=== PATIENT | male | born 1945 | race Caucasian/White ===

== ENCOUNTER → 2021-03-14 | Outpatient (CLI) | payer MEDICARE, BC ==
[2021-03-16 15:34] LABS: CORONAVIRUS (COVID19) CSH-NRL Negative (Negative)
== END | disposition home or self-care (01) ==
LOC: LAB 17:20 → LAB SHORT 17:20
PROVIDERS: Physician Assistant
DX: Z20.822 Contact with and (suspected) exposure to COVID-19 (principal)
CPT/HCPCS: U0003

== ENCOUNTER → 2021-04-07 | Outpatient (CLI) | payer MEDICARE, BC | END | disposition home or self-care (01) | LOC: LAB 11:13 → LAB SHORT 11:13 | DX: D04.5 Carcinoma in situ of skin of trunk (principal) | CPT/HCPCS: 88305 ==

== ENCOUNTER → 2022-05-04 | Outpatient (CLI) | payer MEDICARE, BC | END | disposition home or self-care (01) | LOC: LAB 10:55 → LAB SHORT 10:55 | DX: D48.5 Neoplasm of uncertain behavior of skin (principal) | CPT/HCPCS: 88305 ==

== ENCOUNTER 2022-07-12 07:18 | Day surgery (SDC) | payer MEDICARE, BC ==
[~2022-07-12] VITALS: Ht 185.4 cm; Wt 94.9 kg
[2022-07-12] MEDS ORDERED: ZYRTEC10 M1 (07:35)
[2022-07-12] MEDS ORDERED: ALBU3IS (07:35)
[2022-07-12] MEDS ORDERED: ATOR20 (07:35)
[2022-07-12] MEDS ORDERED: PRED1 (07:36)
== END 2022-07-12 09:22 | disposition home or self-care (01) ==
LOC: ORSCSDS 07:18
PROVIDERS: Surgery
PROC: 0DBP8ZX Excision of Rectum, Via Natural or Artificial Opening Endoscopic, Diagnostic (ICD-10-PCS; principal; 2022-07-12 08:30)
DX: Z85.048 Personal history of other malignant neoplasm of rectum, rectosigmoid junction, and anus (principal); D12.8 Benign neoplasm of rectum; I10 Essential (primary) hypertension; Z79.899 Other long term (current) drug therapy
CPT/HCPCS: 88305; J2704; J7120

== ENCOUNTER 2024-03-05 08:40 | Day surgery (SDC) | payer OTHER ==
[~2024-03-05] VITALS: Ht 182 cm; Wt 89.4 kg
[2024-03-05] VITALS (14 sets, daily range): BP systolic 69–145; BP diastolic 47–78
[~2024-03-05 08:40] MED LIST: ALBU3IS; ATOR20 PO; Acetaminophen 500 MG Tab PO SCH; CeFAZolin Sodium 2,000 MG in NS 100 ML IV SCH; Chlorhexidine Mouth Care 15 ML UDC MT SCH; Deltasone 10 mg10 MG PO; Lactated Ringer's 1,000 ML IV SCH; OxyCODONE HCL 10 MG TABCR PO SCH; Ropivacaine 0.5% HCl/Pf 123.125 MG,EPINEPHrine HCL 0.25 MG,Ketorolac Tromethamine 15 MG... INFIL SCH; Tranexamic Acid 100 ML IV SCH; ZYRTEC10 M1 PO
--- NOTE | 2024-03-05 10:31 | NUR ---
History, Chart, Medications and Allergies reviewed before start of procedure. Patient up to Ambulate independently. Gait steady. Pre-Op teaching done. Pt verbalizes understanding. Patient confirms NPO status and agrees with scheduled surgery. Patient reports completing Chlorhexadine shower X5 prior to admission to hospital. Surgical site prepped with 2% Chlorhexidine cloth wipe. Lungs clear T/O to Auscultation. Patient States Post-Procedure ride home has been arranged.
[2024-03-05] MEDS ORDERED: MUPIROCIN2210 (11:22)
[2024-03-05] MEDS ORDERED: PRED5 PO (11:22)
[2024-03-05] MEDS ORDERED: CENTRUM SILVER1 EAC2 PO (11:25)
[2024-03-05] MEDS ORDERED: FLUT1DIS8 INH (11:26)
[2024-03-05] MEDS ORDERED: PSYLLIUM FIBER0.4 GM PO (11:26)
[2024-03-05] MEDS ORDERED: AIRBORNE IMMUN1 EACH PO (11:27)
[2024-03-05] MEDS ORDERED: FLONASE ALLERG9.9 M2 (11:29)
[2024-03-05] MEDS ORDERED: FentaNYL Citrate 50 MCG/ML 2 ML Injection ONE (11:32)
[2024-03-05] MEDS ORDERED: propofoL 40 ML IV ONE (13:00)
[2024-03-05] MEDS ORDERED: propofoL 20 ML IV ONE (13:50)
[2024-03-05] MEDS ORDERED: Promethazine HCl 25 MG Tab PO PRN (14:05)
[2024-03-05] MEDS ORDERED: OxyCODONE HCL 5 MG TAB PO PRN ×2 (14:10)
[2024-03-05] MEDS ORDERED: Ondansetron HCl 2 MG / ML 2ML Vial IV PRN (14:10)
[2024-03-05] MEDS ORDERED: Magnesium Hydroxide Conc 10 ML UDC PO PRN (14:10)
[2024-03-05] MEDS ORDERED: Metoclopramide HCl 5MG / ML 2ML Vial IV PRN (14:10)
[2024-03-05] MEDS ORDERED: HYDROmorphone HCl/Pf 1MG SYR IV PRN (14:10)
[2024-03-05] MEDS ORDERED: Lactated Ringer's 1,000 ML IV SCH (14:15)
[2024-03-05] MEDS ORDERED: DiphenhydrAMINE HCL 25 MG Cap PO PRN (14:15)
[2024-03-05] MEDS ORDERED: Bisacodyl 10 MG Supp PR PRN (14:15)
--- NOTE | 2024-03-05 15:00 | NUR ---
ARRIVAL TO UNIT PT ARRIVED TO UNIT VIA BED. A&O x4. VSS. TOLERATING ORALS; DENIES N/V. IV FLUIDS INFUSING PER EMAR. PT REPORTS NO PAIN AT THIS TIME, POLAR PACK IN USE, S/P SPINAL - SENSATION AT APPROX L3. AQUACEL & BRONSON WRAP C/D/I. AT BEDSIDE. ORIENTED TO ROOM, CALL LIGHT IN REACH, NO STATED NEEDS AT THIS TIME.
[2024-03-05] MEDS ORDERED: Acetaminophen 500 MG Tab PO SCH (16:00)
[2024-03-05] MEDS ORDERED: Ketorolac Tromethamine 15mg Vial IV SCH (18:00)
--- NOTE | 2024-03-05 18:28 | NUR ---
SHIFT SUMMARY POD 0 R TKA. NO ACUTE CHANGES THIS SHIFT. VSS. TOLERATING ORALS, DENIES N/V. PT REPORTS PAIN TOLERABLE, MEDICATED PER EMAR; POLAR PACK IN USE. AQUACEL/BRONSON WRAP C/D/I. VOIDING IND. AMBULATES USING FWW c SBA. PHYSCIAL THERAPY CLEARED PT TO D/C AFTER EVAL TODAY. AT BEDSIDE. PT ANTICIPATED TO DISCHAGE HOME LATER TODAY. CALL LIGHT IN REACH, BED IN LOWEST POSITION, WILL REPORT TO TOMY RN.
[2024-03-05] MEDS ORDERED: ASPI81CH PO (19:51)
[2024-03-05] MEDS ORDERED: CeFAZolin Sodium 2,000 MG in NS 100 ML IV SCH (20:00)
--- NOTE | 2024-03-05 20:15 | NUR ---
DISCHARGE PT EDUCATED WITH DISCHARGE INSTRUCTIONS. IV REMOVED, PT ASSESSED. MEDICATED FOR PAIN PER EMAR. PT AND SPOUSE VERBALIZED THAT THEY HAVE NO FURTER QUESTIONS OR CONCERNS AT THIS TIME. PT WHEELED OUT BY MARCELINO.
[2024-03-05] MEDS ORDERED: Docusate Sodium 100 MG Cap PO SCH (21:00)
[2024-03-06] MEDS ORDERED: Aspirin 81 MG Chew PO SCH (09:00)
== END 2024-03-05 20:20 | disposition home or self-care (01) ==
LOC: ORSCMMR 08:40 → ORD 10:00 → SURS 14:40 → ORSCMMR 20:20
PROVIDERS: Orthopaedic Surgery
PROC: 0SRC0JA Replacement of Right Knee Joint with Synthetic Substitute, Uncemented, Open Approach (ICD-10-PCS; principal; 2024-03-05 10:00)
PROC: 8E0Y0CZ Robotic Assisted Procedure of Lower Extremity, Open Approach (ICD-10-PCS; principal; 2024-03-05 10:00)
DX: M17.11 Unilateral primary osteoarthritis, right knee (principal); E78.5 Hyperlipidemia, unspecified; Z79.899 Other long term (current) drug therapy
CPT/HCPCS: 73560-RT; 97110; 97116; 97162; A9270; C1713; C1776; J0171; J0690; J0735; J1885; J2704; J2795; J3010; J7120

== ENCOUNTER 2024-08-20 06:12 | Day surgery (SDC) | payer OTHER ==
[~2024-08-20] VITALS: Ht 185.4 cm; Wt 80.0 kg
[~2024-08-20 06:12] MED LIST changes: +AIRBORNE IMMUN1 EACH PO; +ASPI81CH PO; -Acetaminophen 500 MG Tab PO SCH; +CENTRUM SILVER1 EAC2 PO; -CeFAZolin Sodium 2,000 MG in NS 100 ML IV SCH; -Chlorhexidine Mouth Care 15 ML UDC MT SCH; +FLONASE ALLERG9.9 M2; +FLUT1DIS8 INH; -Lactated Ringer's 1,000 ML IV SCH; +MUPIROCIN2210; -OxyCODONE HCL 10 MG TABCR PO SCH; +PRED5 PO; +PSYLLIUM FIBER0.4 GM PO; -Ropivacaine 0.5% HCl/Pf 123.125 MG,EPINEPHrine HCL 0.25 MG,Ketorolac Tromethamine 15 MG... INFIL SCH; -Tranexamic Acid 100 ML IV SCH
[2024-08-20] MEDS ORDERED: FARXIGA10 MG PO (06:28)
[2024-08-20] MEDS ORDERED: ALBU90OI INH (06:28)
[2024-08-20] MEDS ORDERED: XARELTO20 MG PO (06:33)
[2024-08-20] MEDS ORDERED: METO25ER PO (06:33)
[2024-08-20] MEDS ORDERED: ENTRESTO 24 MG1 EAC2 PO (06:35)
[2024-08-20] MEDS ORDERED: NASACORT10.8 ML NS (06:36)
[2024-08-20] MEDS ORDERED: NS 1,000 ML IV ONE (06:53)
[2024-08-20 07:01] VITALS: BP 118/61
--- NOTE | 2024-08-20 07:25 | NUR ---
ASSUMED CARE FROM ANESTHESIA AT 0725. PT AWAKE AND VERBALIZING WELL. SR 55-60BPM POST CARDIOVERSION.
[2024-08-20 07:26] VITALS: BP 118/61
[2024-08-20 07:32] VITALS: BP 109/63
[2024-08-20 07:38] VITALS: BP 114/64
[2024-08-20 07:44] VITALS: BP 119/63
--- NOTE | 2024-08-20 07:46 | NUR ---
PT AND VERBALIZED UNDERSTANDING OF WRITTEN AND VERBAL D/C INST. IV REMOVED. SR 55-60BPM. EKD DONE. PT WILL BE TAKEN OUT VIA W/C.
[2024-08-20 07:48] VITALS: BP 118/66
--- NOTE | 2024-08-20 11:00 | NUR ---
PT REFUSES SNAKES OR MEAL. PT FAMILY AT BEDSIDE. R WRIST IS SOFT. NO BLEEDING.
--- NOTE | 2024-08-20 11:14 | NUR ---
BEGAN DEFLATING TR BAND.
[2024-08-20] MEDS ORDERED: Propofol 10mg/ml 20 ml Vial (Procedural) IV ONE (13:34)
== END 2024-08-20 23:00 | disposition home or self-care (01) ==
LOC: MHTC 06:12 → ORSCMMR 06:12 → MHTC 06:26 → ORSCSDS 07:00 → ORSCMMR 07:00 → ORD 07:00 → ORSCMMR 23:00 → MHTC 23:00
DX: I48.19 Other persistent atrial fibrillation (principal); J45.40 Moderate persistent asthma, uncomplicated; E78.5 Hyperlipidemia, unspecified; E11.9 Type 2 diabetes mellitus without complications; I11.0 Hypertensive heart disease with heart failure; I50.20 Unspecified systolic (congestive) heart failure; Z79.899 Other long term (current) drug therapy; Z88.8 Allergy status to other drugs, medicaments and biological substances
CPT/HCPCS: 92960; 93005; 93010; J2704; J7030

== ENCOUNTER 2024-08-26 07:16 | Day surgery (SDC) | payer OTHER ==
[2024-08-26] VITALS (9 sets, daily range): BP systolic 93–143; BP diastolic 49–77
[~2024-08-26] VITALS: Ht 185.4 cm; Wt 79.5 kg
[~2024-08-26 07:16] MED LIST changes: +ALBU90OI INH; +ENTRESTO 24 MG1 EAC2 PO; +FARXIGA10 MG PO; +METO25ER PO; +NASACORT10.8 ML NS; +XARELTO20 MG PO
[2024-08-26] MEDS ORDERED: Amiodarone HCl200 MG PO (07:34)
[2024-08-26] MEDS ORDERED: NS 1,000 ML IV ONE ×2 (07:36→08:10)
[2024-08-26] MEDS ORDERED: NS 250 ML IV ONE (07:36)
[2024-08-26] MEDS ORDERED: Nitroglycerin 2 MG/20 ML BTL ONE (07:36)
[2024-08-26] MEDS ORDERED: Heparin Sodium 1000 Units/ML 10ML MDV ONE (07:36)
[2024-08-26] MEDS ORDERED: Verapamil HCL 2.5 MG/ML 2ML Injection ONE (07:36)
[2024-08-26] MEDS ORDERED: Aspirin 325 MG Tab ONE (08:03)
[2024-08-26] MEDS ORDERED: Midazolam HCl 1MG / ML 2ML Vial ONE (08:10)
[2024-08-26] MEDS ORDERED: FentaNYL Citrate 50 MCG/ML 2 ML Injection ONE (08:10)
--- NOTE | 2024-08-26 09:28 | NUR ---
PT BACK FROM [facility] [employer] [facility] AT 0925 S/P PCI. PT AWAKE AND ALERT UP IN CHAIR. PT DENIES COMPLAINTS. DENIES CHEST PAIN. TR BAND TO RIGHT RADIAL ARTERY REVIEWED. SITE STABLE W/O SWELLING, TENDERNESS, BLEEDING. DR BOWMAN AT BEDSIDE SPEAKING W PATIENT AND PATIENT'S . 9CC TO TR BAND.
[2024-08-26] MEDS ORDERED: FURO20 PO (09:54)
--- NOTE | 2024-08-26 10:53 | NUR ---
.PATIENT ATE BREAKFAST, ABBY WELL. TR BAND COMPLETELY DEFLATED OVER 30MIN/ TR BAND INFLATED AT 1100. RIGHT WRIST SITE STABLE W/O SWELLING, BLEEDING, OR TENDERNESS. PT DENIES COMPLAINTS/
--- NOTE | 2024-08-26 11:40 | NUR ---
r radial site soft and non-tender per pt. no bleeding noted. r brachial site soft and non-tender per pt. no bleeding noted.
--- NOTE | 2024-08-26 11:54 | NUR ---
pt given dc insturctions and verbalized understanding. iv out. cloth dot, arm board, and sling applied. radial and brachial sites both soft and non-tender per pt. no bleeding noted. pt changed. pt taken to [facility] via [place]. so to drive pt home.
== END 2024-08-26 12:00 | disposition home or self-care (01) ==
LOC: MHTC 07:16
DX: I25.10 Atherosclerotic heart disease of native coronary artery without angina pectoris (principal); E78.5 Hyperlipidemia, unspecified; I48.91 Unspecified atrial fibrillation; E11.9 Type 2 diabetes mellitus without complications; I11.0 Hypertensive heart disease with heart failure; I50.20 Unspecified systolic (congestive) heart failure; I48.19 Other persistent atrial fibrillation
CPT/HCPCS: 76937; 93453; 93571; 99152; 99153; A9270; C1769; C1887; C1894; J1644; J2250; J3010; J7030; J7050; Q9967